=== PATIENT | female | born 1955 | race Caucasian/White ===

== ENCOUNTER 2017-08-03 22:21 | Emergency (ER) | payer SELFPAY ==
--- NOTE | 2017-08-04 00:17 | ER Document Report ---
ED Fall - General Chief Complaint: Fall Stated Complaint: FALL/ ALTERED MENTAL STATUS Time Seen by Provider: 08/03/17 22:43 Mode of Arrival: Stretcher Information source: Patient, Friend - HPI Patient complains to provider of: Fall Occurred: Just prior to arrival Where: Home Context: Slipped Associated symptoms: Lost consciousness Quality of pain: No pain Prehospital interventions: C-collar Notes: Patient is a 62-year-old female who is brought to the emergency room by EMS after falling down some stairs, patient's male mast maker at bedside states that they were drinking quite heavily this evening drinking fifth of rum combined, he heard patient tumbled down the stairs, when he found her laying on the floor near the front door she was unconscious, patient does not recall any of this occurring, and in fact denies drinking heavily this evening and falling, she denies any pain at time of my evaluation, she is moving all extremities without difficulty and multiple times trying to climb out of the stretcher - Related data Allergies/Adverse Reactions: No Known Allergies Allergy (Unverified 08/04/17 01:02) Past Medical History - General Information source: Patient, Friend - Social History Smoking Status: Unknown if Ever Smoked Frequency of alcohol use: Heavy Family History: Reviewed & Not Pertinent Review of Systems - Review of Systems Constitutional: No symptoms reported EENT: No symptoms reported Cardiovascular: No symptoms reported Respiratory: No symptoms reported Gastrointestinal: No symptoms reported Genitourinary: No symptoms reported Female Genitourinary: No symptoms reported Musculoskeletal: No symptoms reported Skin: No symptoms reported Hematologic/Lymphatic: No symptoms reported Neurological/Psychological: No symptoms reported -: Yes All other systems reviewed and negative Physical Exam - Vital signs Vitals: Resp 17 08/03/17 22:42 Interpretation: Normal - General General appearance: Alert, Other - EtOH on breath, appears intoxicated In distress: None - HEENT Head: Other - Swelling to posterior scalp Eyes: Normal Conjunctiva: Normal Extraocular movements intact: Yes Eyelashes: Normal Pupils: PERRL Neck: Other - C-collar in place - Respiratory Respiratory status: No respiratory distress Chest status: Nontender Breath sounds: Normal Chest palpation: Normal - Cardiovascular Rhythm: Regular Heart sounds: Normal auscultation Murmur: No - Abdominal Inspection: Normal Distension: No distension Bowel sounds: Normal Tenderness: Nontender Organomegaly: No organomegaly - Back Back: Normal, Nontender - Extremities General upper extremity: Normal inspection, Nontender, Normal color, Normal ROM , Normal temperature General lower extremity: Normal inspection, Nontender, Normal color, Normal ROM , Normal temperature, Normal weight bearing. No: Katharina's sign - Neurological Neuro grossly intact: Yes Cognition: Confused Orientation: Disoriented to events [place] Coma Scale Eye Opening: Spontaneous [place] Coma Scale Verbal: Confused Juan Jose Coma Scale Motor: Obeys Commands Swayzee Coma Scale Total: 14 Speech: Normal Motor strength normal: LUE, RUE, LLE, RLE Sensory: Normal - Psychological Associated symptoms: Normal affect, Normal mood - Skin Skin Temperature: Warm Skin Moisture: Dry Skin Color: Normal Course - Re-evaluation Re-evalutation: 08/04/17 00:48 I received a call from the radiologist reporting that patient had abnormal findings on her CT head including a subdural hematoma, subarachnoid blood and parenchymal contusions, a call was immediately placed to [facility] in [place], spoke with trauma surgeon Dr. aldrich, who accepts patient for transfer , transfer center states they have a EMS crew in the area and they will dispatch them over to pick patient up for transport - Vital Signs Vital signs: Temp Pulse Resp BP Pulse Ox 16 120/65 98 08/04/17 01:13 08/04/17 01:00 08/04/17 01:13 - Diagnostic Test Radiology reviewed: Image reviewed, Reports reviewed Critical Care Note - Critical Care Note Total time excluding time spent on procedures (mins): 30 Comments: Patient was slip and fall downstairs, positive EtOH on board, CT scan shows small subdural hematoma with subarachnoid and parenchymal hematomas, patient intoxicated in the emergency room, requiring frequent redirection to prevent further fall and injury, with transfer to trauma center at tertiary care center Discharge - Discharge Clinical Impression: Subdural hematoma, Trauma Traumatic subarachnoid hematoma with loss of consciousness Qualifiers: Encounter type: initial encounter Qualified Code(s): S06.6X9A - Traumatic subarachnoid hemorrhage with loss of consciousness of unspecified duration, initial encounter Alcohol intoxication Qualifiers: Complication of substance-induced condition: with unspecified complication Qualified Code(s): F10.929 - Alcohol use, unspecified with intoxication, unspecified Condition: Serious Disposition: [facility]
--- NOTE | 2017-08-04 00:50 | RADIOLOGY REPORT (SQ) ---
EXAM DESCRIPTION: CT HEAD WITHOUT COMPLETED DATE/TIME: 08/04/2017 12:11 am REASON FOR STUDY: injury COMPARISON: None. TECHNIQUE: Axial images acquired through the brain without intravenous contrast. Images reviewed wi th bone, brain and subdural windows. Images stored on PACS. All CT scanners at this facility use dose modulation, iterative reconstruction, and/or weight based d osing when appropriate to reduce radiation dose to as low as reasonably achievable (ALARA). [facility]: Dose Right [facility]: CareDose [facility]: Dose Right [facility]: Teradose 4D [facility]: [employer] RADIATION DOSE: Up-to-date CT equipment and radiation dose reduction techniques were employed. CTDIv ol: 64.6 mGy. DLP: 1292 mGy-cm. mGy. LIMITATIONS: Motion artifact. FINDINGS: VENTRICLES: Normal size and contour. CEREBRUM: Areas of increased densities are seen within the medial aspect of the bilateral frontal lob es and left parietal lobe, suggestive of small subarachnoid hemorrhages and brain contusions. Small area of intraparenchymal hemorrhage measuring 7 mm in the left parietal lobe (image 20). Otherwise, the white-fitch matter differentiation is preserved. No CT evidence of acute territorial infarct. No midline shift. CEREBELLUM: No hemorrhage. No alteration of density. No evidence for acute infarction. EXTRAAXIAL SPACES: Trace hyperdensities at the tentorium and the right frontal region measuring up to 3 mm in thickness, suggestive of small subdural hemorrhages. ORBITS AND GLOBE: Symmetrical contour of the globes. CALVARIUM: No depressed fracture. PARANASAL SINUSES: Mild mucosal thickening in the bilateral maxillary sinuses. SOFT TISSUES: Large scalp hematoma overlying the left parieto-occipital region. IMPRESSION: Small areas of acute subdural, subarachnoid and intraparenchymal hemorrhages. Short-ter m followup CT recommended to re-evaluate. Large scalp hematoma overlying the left parieto-occipital region. COMMENT: Pertinent findings on the imaging study reported as a CRITICAL RESULT to FROYLAN VIGIL DO at00:41 hours on 08/04/2017. Category of Critical Result: Acute intracranial hemorrhage. Quality ID # 436: Final reports with documentation of one or more dose reduction techniques (e.g., Au tomated exposure control, adjustment of the mA and/or kV according to patient size, use of iterative reconstruction technique) TECHNICAL DOCUMENTATION: JOB ID: [id number] OH-[id number] 2010 [employer]- All Rights Reserved
--- NOTE | 2017-08-04 01:04 | RADIOLOGY REPORT (SQ) ---
EXAM DESCRIPTION: CT CERVICAL SPINE WITHOUT COMPLETED DATE/TIME: 08/04/2017 12:11 am REASON FOR STUDY: injury , fall. COMPARISON: None. TECHNIQUE: Axial images acquired through the cervical spine without intravenous contrast. Images re viewed with lung, soft tissue and bone windows. Reconstructed coronal and sagittal MPR images review ed. Images stored on PACS. All CT scanners at this facility use dose modulation, iterative reconstruction, and/or weight based d osing when appropriate to reduce radiation dose to as low as reasonably achievable (ALARA). [facility]: Dose Right [facility]: CareDose [facility]: Dose Right [facility]: Teradose 4D [facility]: Smart [employer] RADIATION DOSE: Up-to-date CT equipment and radiation dose reduction techniques were employed. CTDIv ol: 10.2 mGy. DLP: 232 mGy-cm. mGy. LIMITATIONS: Motion artifact. Streak artifact from the patient's dental amalgam. FINDINGS: ALIGNMENT: Anatomic. MINERALIZATION: Normal. VERTEBRAL BODIES: No fractures or dislocation. DISCS: Degenerative disc disease at C5-C6. FACETS, LATERAL MASSES, POSTERIOR ELEMENTS: No fractures. No dislocation. HARDWARE: None in the spine. VISUALIZED RIBS: No fractures. LUNG APICES AND SOFT TISSUES: No acute findings. IMPRESSION: No CT evidence for acute fracture in the cervical spine. Degenerative disc disease at C 5-C6. TECHNICAL DOCUMENTATION: JOB ID: [id number] Quality ID # [id number]: Final reports with documentation of one or more dose reduction techniques (e.g., Au tomated exposure control, adjustment of the mA and/or kV according to patient size, use of iterative reconstruction technique) 2010 [email or web address]- All Rights Reserved
[2017-08-04 01:22] VITALS: BP 120/65
--- NOTE | 2017-08-04 01:33 | RADIOLOGY REPORT (SQ) ---
EXAM DESCRIPTION: ELBOW LEFT OVER 2 VIEWS COMPLETED DATE/TIME: 08/04/2017 12:36 am REASON FOR STUDY: fall COMPARISON: None. NUMBER OF VIEWS: Four views. TECHNIQUE: AP, lateral, and both oblique radiographic images acquired of the left elbow. LIMITATIONS: None. FINDINGS: MINERALIZATION: Normal. BONES: No acute fracture or dislocation. No worrisome bone lesions. JOINT: No effusion. SOFT TISSUES: No soft tissue swelling. Radiopaque catheter at the left antecubital fossa. IMPRESSION: No radiographic evidence of acute injury. TECHNICAL DOCUMENTATION: JOB ID: [id number] OH-[id number] 2010 [employer]- All Rights Reserved
== END 2017-08-04 01:20 | disposition short-term general hospital (02) ==
LOC: ER 22:21
DX: S06.6X9A Traumatic subarachnoid hemorrhage with loss of consciousness of unspecified duration, initial encounter (principal); R41.82 Altered mental status, unspecified; F10.929 Alcohol use, unspecified with intoxication, unspecified; W10.9XXA Fall (on) (from) unspecified stairs and steps, initial encounter; Y92.009 Unspecified place in unspecified non-institutional (private) residence as the place of occurrence of the external cause
CPT/HCPCS: 70450; 72125; 99291

== ENCOUNTER 2017-08-09 10:39 | Emergency (ER) | payer SELFPAY ==
--- NOTE | 2017-08-09 10:58 | ER Document Report ---
ED Medical Screen (RME) - General Chief Complaint: Headache Stated Complaint: FALL HEAD INJURY Time Seen by Provider: 08/09/17 10:50 Notes: 52-year-old female patient suffered a fall down flight of stairs on 08/03/2017 had a subdural hematoma and small subarachnoid hemorrhage. She was transferred divided and was discharged on 08/05/2017 since then she has complained of increasing headache and nauseousness. She suspects it may be due to the Dilaudid she was taking. I have greeted and performed a rapid initial assessment of this patient. A comprehensive ED assessment and evaluation of the patient, analysis of test results and completion of the medical decision making process will be conducted by additional ED providers. TRAVEL OUTSIDE OF THE [place] IN LAST 30 DAYS: No - Related Data Allergies/Adverse Reactions: No Known Allergies Allergy (Verified 08/09/17 10:45) Past Medical History Renal/ Medical History: Denies: Hx Peritoneal Dialysis Physical Exam - Vital signs Vitals: Temp Pulse Resp BP Pulse Ox 98.6 F 82 18 115/72 98 08/09/17 10:42 08/09/17 10:42 08/09/17 10:42 08/09/17 10:42 08/09/17 10:42 Course - Vital Signs Vital signs: Temp Pulse Resp BP Pulse Ox 98.6 F 82 18 115/72 98 08/09/17 10:42 08/09/17 10:42 08/09/17 10:42 08/09/17 10:42 08/09/17 10:42
[2017-08-09 11:38] LABS: ABSOLUTE BASOPHILS # (AUTO) 0.1 10^3/uL (0.0-0.2); ABSOLUTE LYMPHOCYTES (AUTO) 1.1 10^3/uL (0.5-4.7); ABSOLUTE MONOCYTES (AUTO) 0.7 10^3/uL (0.1-1.4); ABSOLUTE NEUT (AUTO) 7.5 10^3/uL (1.7-8.2); BASOPHILS % (AUTO) 0.7 % (0-2); EOSINOPHILS % (AUTO) 0.3 % (0-6); HEMATOCRIT 35.7 % (36.0-47.0); HGB HCT DIFFERENCE 3.3; LYMPHOCYTES % (AUTO) 11.8 % (13-45); MEAN CORPUSCULAR HEMOGLOBIN 33.2 pg (27.0-33.4); MEAN CORPUSCULAR HGB CONC 36.5 g/dL (32.0-36.0); MEAN CORPUSCULAR VOLUME 91 fl (80-97); MONOCYTES % (AUTO) 7.3 % (3-13); RED BLOOD COUNT 3.93 10^6/uL (3.72-5.28); RED CELL DISTRIBUTION WIDTH 13.3 % (11.5-14.0); SEGMENTED NEUTROPHILS % (AUTO) 79.9 % (42-78); WHITE BLOOD COUNT 9.4 10^3/uL (4.0-10.5)
--- NOTE | 2017-08-09 11:40 | RADIOLOGY REPORT (SQ) ---
EXAM DESCRIPTION: CT HEAD WITHOUT COMPLETED DATE/TIME: 08/09/2017 11:02 am REASON FOR STUDY: [place], nausea, recent subdural and subarachnoid bleed COMPARISON: 08/03/2017 TECHNIQUE: Axial images acquired through the brain without intravenous contrast. Images reviewed wi th bone, brain and subdural windows. Images stored on PACS. All CT scanners at this facility use dose modulation, iterative reconstruction, and/or weight based d osing when appropriate to reduce radiation dose to as low as reasonably achievable (ALARA). [facility]: Dose Right [facility]: CareDose [facility]: Dose Right [facility]: Teradose 4D [facility]: Smart [employer] RADIATION DOSE: Up-to-date CT equipment and radiation dose reduction techniques were employed. CTDIv ol: 64.6 mGy. DLP: 1163 mGy-cm. mGy. LIMITATIONS: None. FINDINGS: VENTRICLES: Normal size and contour. CEREBRUM: No masses. No hemorrhage. No midline shift. No evidence for acute infarction. Normal gra y/white matter differentiation. No areas of low density in the white matter. CEREBELLUM: No masses. No hemorrhage. No alteration of density. No evidence for acute infarction. EXTRAAXIAL SPACES: There is a small chronic left subdural fluid collection in the frontal area. Ther e is an increasing right subdural/subarachnoid fluid collection that extends from the frontal to the parietal area. Fresh blood is present. This extends up to the vertex. ORBITS AND GLOBE: No intra- or extraconal masses. Normal contour of globe without masses. CALVARIUM: No fracture. PARANASAL SINUSES: No fluid or mucosal thickening. SOFT TISSUES: No mass or hematoma. OTHER: No other significant finding. IMPRESSION: Acute/subacute subdural and subarachnoid hemorrhage on the right as described. This rep resents a significant change from the earlier study. EVIDENCE OF ACUTE STROKE: NO. COMMENT: Findings reported to the emergency room physician at 1134 hours on this date. Quality ID # 436: Final reports with documentation of one or more dose reduction techniques (e.g., Au tomated exposure control, adjustment of the mA and/or kV according to patient size, use of iterative reconstruction technique) TECHNICAL DOCUMENTATION: JOB ID: [id number]- All Rights Reserved
--- NOTE | 2017-08-09 11:43 | ER Document Report ---
ED General - General Chief Complaint: Headache Stated Complaint: FALL HEAD INJURY Time Seen by Provider: 08/09/17 10:50 Mode of Arrival: Ambulatory Information source: Patient Notes: 62 yr old female who was diagnosed with subdural and subarachnoid bleed on the sent to [facility] discharged on the , noted to have worsening symptoms on the . Pt notes she was taking motrin becuase the tylenol was not helping. TRAVEL OUTSIDE OF THE [place] IN LAST 30 DAYS: No - Related Data Allergies/Adverse Reactions: No Known Allergies Allergy (Verified 08/09/17 10:45) Home Medications: Current Home Medications Alprazolam [Xanax] 1 tab PO DAILY 08/09/17 [History] Past Medical History - Social History Smoking Status: Current Every Day Smoker Chew tobacco use (# tins/day): No Frequency of alcohol use: Occasional Drug Abuse: None Family History: Reviewed & Not Pertinent Renal/ Medical History: Denies: Hx Peritoneal Dialysis Past Surgical History: Reports: Hx Section - x 2, Hx Tonsillectomy Physical Exam - Vital signs Vitals: Temp Pulse Resp BP Pulse Ox 98.6 F 82 18 115/72 98 08/09/17 10:42 08/09/17 10:42 08/09/17 10:42 08/09/17 10:42 08/09/17 10:42 Course - Re-evaluation Re-evalutation: 08/09/17 11:41 I contacted [facility] paged they state they have no beds, explained my concerns for new subdural subarrachnoid bleed 08/09/17 12:23 dr Silva accepts patients , request BP 140/80 . currently bp is stable. - Vital Signs Vital signs: Temp Pulse Resp BP Pulse Ox 98.6 F 82 18 115/72 98 08/09/17 10:42 08/09/17 10:42 08/09/17 10:42 08/09/17 10:42 08/09/17 10:42 - Laboratory Result Diagrams: 08/09/17 11:30 08/09/17 11:30 Laboratory results interpreted by me: 08/09/17 08/09/17 11:30 11:30 Hct 35.7 L MCHC 36.5 H Seg Neutrophils % 79.9 H Lymphocytes % 11.8 L Sodium 136.6 L Creatinine 0.46 L Glucose 113 H Direct Bilirubin 0.6 H - Diagnostic Test Radiology reviewed: Image reviewed, Reports reviewed - subdural subarrachnoid new bleed noted Critical Care Note - Critical Care Note Total time excluding time spent on procedures (mins): 43 Comments: 43 minutes of critical care time spent in direct contact evaluating and reevaluating the patient, treating symptoms, reviewing labs and studies and speaking with family and consultants excluding any procedures Discharge - Discharge Clinical Impression: Subdural hematoma, Subarachnoid bleed Headache Qualifiers: Headache type: unspecified Headache chronicity pattern: acute headache Intractability: not intractable Qualified Code(s): R51 - Headache Condition: Stable Disposition: [facility]
[2017-08-09] MEDS ORDERED: ONDANSETRON HCL INJ/PF 4 MG/2 ML SDV IV ONE ×2 (11:53→14:39)
[2017-08-09] MEDS ORDERED: MORPHINE SULFATE 10 MG/ML INJ IV ONE ×2 (11:53→14:39)
[2017-08-09 11:58] LABS: ALANINE AMINOTRANSFERASE 24 U/L (9-52); ALBUMIN 4.3 g/dL (3.5-5.0); ALKALINE PHOSPHATASE 107 U/L (38-126); ANION GAP 13 (5-19); ASPARTATE AMINO TRANSFERASE 30 U/L (14-36); BILIRUBIN,DIRECT 0.6 mg/dL (0.0-0.4); BILIRUBIN,TOTAL 1.1 mg/dL (0.2-1.3); BLOOD UREA NITROGEN 14 mg/dL (7-20); CALCIUM 10.1 mg/dL (8.4-10.2); CARBON DIOXIDE 25 mmol/L (22-30); CHLORIDE 99 mmol/L (98-107); CREATININE RESULT 0.46 mg/dL (0.52-1.25); GLUCOSE 113 mg/dL (75-110); POTASSIUM 4.3 mmol/L (3.6-5.0); SODIUM 136.6 mmol/L (137-145); TOTAL PROTEIN 7.6 g/dL (6.3-8.2)
[2017-08-09 14:26] VITALS: BP 113/81
== END 2017-08-09 15:08 | disposition short-term general hospital (02) ==
LOC: ER 10:39
DX: S06.5X9A Traumatic subdural hemorrhage with loss of consciousness of unspecified duration, initial encounter (principal); S06.6X9A Traumatic subarachnoid hemorrhage with loss of consciousness of unspecified duration, initial encounter; R51 Headache; W10.9XXA Fall (on) (from) unspecified stairs and steps, initial encounter; F17.200 Nicotine dependence, unspecified, uncomplicated
CPT/HCPCS: 96376; 99291; 96374; 96375; 36415; 85025; 80053; 70450; J2270; J2405

== ENCOUNTER 2018-05-03 19:42 | Emergency (ER) | payer SELFPAY ==
--- NOTE | 2018-05-03 20:28 | ER Document Report ---
ED General - General Stated Complaint: PSYCH EVAL Time Seen by Provider: 05/03/18 19:56 Cannot obtain history due to: Intoxicated, Altered mental status Notes: The patient is a 62-year-old female who presents on involuntary commitment paperwork after apparently threatening suicide to family members. The patient is visibly intoxicated. She states that she told her family she wanted to kill herself because she is lonely but denies actual attend intentions of wanting to harm herself. Her history is otherwise limited as the patient is intoxicated and also appears to be under psychiatric distress. IVC documentation reports that the patient is apparently not been caring for herself. It also reports that she has not been taking her medications. She had a mobile crisis assessment and the mobile grocery worker is the individual who took the IVC out on the patient. TRAVEL OUTSIDE OF THE [place] IN LAST 30 DAYS: No - Related Data Allergies/Adverse Reactions: No Known Allergies Allergy (Verified 08/09/17 10:45) Past Medical History - General Information source: Patient - Social History Smoking Status: Current Every Day Smoker Frequency of alcohol use: Occasional Drug Abuse: None Lives with: Alone Family History: Reviewed & Not Pertinent Renal/ Medical History: Denies: Hx Peritoneal Dialysis Past Surgical History: Reports: Hx Section - x 2, Hx Tonsillectomy Review of Systems - Review of Systems Notes: Constitutional: Negative for fever. HENT: Negative for sore throat. Eyes: Negative for visual changes. Cardiovascular: Negative for chest pain. Respiratory: Negative for shortness of breath. Gastrointestinal: Negative for abdominal pain, vomiting or diarrhea. Genitourinary: Negative for dysuria. Musculoskeletal: Negative for back pain. Skin: Negative for rash. Neurological: Negative for headaches, weakness or numbness. 10 point ROS negative except as marked above and in HPI. Physical Exam - Vital signs Notes: PHYSICAL EXAMINATION: GENERAL: Somewhat disheveled, intoxicated HEAD: Atraumatic, normocephalic. EYES: Pupils equal round and reactive to light, extraocular movements intact, sclera anicteric, conjunctiva are normal. ENT: nares patent, oropharynx clear without exudates. Moist mucous membranes. NECK: Normal range of motion, supple without lymphadenopathy LUNGS: Breath sounds clear to auscultation bilaterally and equal. No wheezes rales or rhonchi. HEART: Regular rate and rhythm without murmurs ABDOMEN: Soft, nontender, normoactive bowel sounds. No guarding, no rebound. No masses appreciated. EXTREMITIES: Normal range of motion, no pitting or edema. No cyanosis. NEUROLOGICAL: No focal neurological deficits. Moves all extremities spontaneously and on command. PSYCH: Labile mood and affect. Anxious, tearful, intermittently agitated SKIN: Warm, Dry, normal turgor, no rashes or lesions noted. Course - Re-evaluation Re-evalutation: 05/03/18 20:27 Patient is presenting with reported suicidal ideation, poor maintenance of hygiene, agitation, and conflict with family on IVC. She allegedly told her family members that she wanted to kill herself and apparently wrote a suicide note. She arrives in police custody. Patient has an unusual affect speaking normally one moment and then tearful and crying as well as screaming the next. She has no prior psychiatric hospitalizations here at this hospital. She is currently denying any suicidal or homicidal intention. However based on IVC assessment by mobile [employer] crisis I do believe that she should remain in the emergency department for evaluation and disposition by psychiatry. Her medical screening examination is unremarkable. Standard screening laboratories will be sent. She is otherwise cleared for evaluation and disposition by psychiatry in the morning. - Laboratory Result Diagrams: 05/03/18 20:20 05/03/18 20:20 Laboratory results interpreted by me: 05/03/18 05/03/18 05/03/18 20:20 20:20 20:20 Hgb 16.0 H Sodium 153.6 H Chloride 111 H BUN 5 L Urine Blood SMALL H Salicylates < 1.0 L Acetaminophen < 10 L Discharge - Discharge Clinical Impression: Threatening suicide Alcohol intoxication Qualifiers: Complication of substance-induced condition: uncomplicated Qualified Code(s): F10.920 - Alcohol use, unspecified with intoxication, uncomplicated Condition: Fair
[2018-05-03 20:34] LABS: ABSOLUTE BASOPHILS # (AUTO) 0.1 10^3/uL (0.0-0.2); ABSOLUTE EOSINOPHILS # (AUTO) 0.1 10^3/uL (0.0-0.6); ABSOLUTE LYMPHOCYTES (AUTO) 3.4 10^3/uL (0.5-4.7); ABSOLUTE MONOCYTES (AUTO) 0.3 10^3/uL (0.1-1.4); ABSOLUTE NEUT (AUTO) 4.2 10^3/uL (1.7-8.2); BASOPHILS % (AUTO) 1.2 % (0-2); EOSINOPHILS % (AUTO) 1.3 % (0-6); LYMPHOCYTES % (AUTO) 42.1 % (13-45); MEAN CORPUSCULAR HGB CONC 34.9 g/dL (32.0-36.0); MEAN CORPUSCULAR VOLUME 92 fl (80-97); MONOCYTES % (AUTO) 4.2 % (3-13); PLATELET COUNT 290 10^3/uL (150-450); RED BLOOD COUNT 5.01 10^6/uL (3.72-5.28); RED CELL DISTRIBUTION WIDTH 13.8 % (11.5-14.0); SEGMENTED NEUTROPHILS % (AUTO) 51.2 % (42-78); TOTAL CELLS COUNTED % (AUTO) 100 %; WHITE BLOOD COUNT 8.1 10^3/uL (4.0-10.5)
[2018-05-03 20:52] LABS: ALANINE AMINOTRANSFERASE 21 U/L (9-52); ALBUMIN 4.8 g/dL (3.5-5.0); ALCOHOL 229 mg/dL (NONE DETECTED); ALKALINE PHOSPHATASE 80 U/L (38-126); ANION GAP 16 (5-19); ASPARTATE AMINO TRANSFERASE 22 U/L (14-36); BILIRUBIN,DIRECT 0.3 mg/dL (0.0-0.4); BILIRUBIN,TOTAL 0.4 mg/dL (0.2-1.3); BLOOD UREA NITROGEN 5 mg/dL (7-20); CALCIUM 9.9 mg/dL (8.4-10.2); CARBON DIOXIDE 27 mmol/L (22-30); CHLORIDE 111 mmol/L (98-107); GLUCOSE 79 mg/dL (75-110); SODIUM 153.6 mmol/L (137-145); TOTAL PROTEIN 7.9 g/dL (6.3-8.2)
[2018-05-03 20:54] LABS: ACETAMINOPHEN < 10 ug/mL (10-30); SALICYLATE < 1.0 mg/dL (2.0-20.0)
[2018-05-03 21:03] LABS: APPEARANCE,URINE CLEAR; BILIRUBIN,URINE NEGATIVE (NEGATIVE); COLOR,URINE STRAW; GLUCOSE, URINE NEGATIVE (NEGATIVE); KETONES,URINE NEGATIVE (NEGATIVE); LEUKOCYTE ESTERASE,URINE NEGATIVE (NEGATIVE); NITRITE,URINE NEGATIVE (NEGATIVE); PROTEIN,URINE NEGATIVE (NEGATIVE); URINE SPECIFIC GRAVITY 1.003; UROBILINOGEN,URINE NEGATIVE mg/dL (<2.0)
[2018-05-03] MEDS ORDERED: NICOTINE 21 MG/24 HR PATCH.TD24 TD ONE (21:03)
[2018-05-03 21:15] LABS: URINE AMPHETAMINES SCREEN NEGATIVE; URINE BARBITURATES SCREEN NEGATIVE; URINE BENZODIAZEPINES SCREEN UNCONFIRMED POSITIVE; URINE COCAINE SCREEN NEGATIVE; URINE MARIJUANA (THC) SCREEN NEGATIVE; URINE METHADONE SCREEN NEGATIVE; URINE PHENCYCLIDINE SCREEN NEGATIVE
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
--- NOTE | 2018-05-04 10:53 | RADIOLOGY REPORT (SQ) ---
EXAM DESCRIPTION: CT HEAD WITHOUT COMPLETED DATE/TIME: 05/04/2018 10:28 am REASON FOR STUDY: Altered mental status, Hx SDH COMPARISON: CT brain 08/03/2017, 08/09/2017 TECHNIQUE: Axial images acquired through the brain without intravenous contrast. Images reviewed wi th bone, brain and subdural windows. Additional sagittal and coronal reconstructions were generated. Images stored on PACS. All CT scanners at this facility use dose modulation, iterative reconstruction, and/or weight based d osing when appropriate to reduce radiation dose to as low as reasonably achievable (ALARA). [facility]: Dose Right [facility]: CareDose [facility]: Dose Right [facility]: Teradose 4D [facility]: Smart [employer] RADIATION DOSE: CT Rad equipment meets quality standard of care and radiation dose reduction techniq ues were employed. CTDIvol: 53.2 mGy. DLP: 1044 mGy-cm. mGy. LIMITATIONS: None. FINDINGS: VENTRICLES: Normal size and contour. CEREBRUM: No masses. No hemorrhage. No midline shift. No evidence for acute infarction. Normal gra y/white matter differentiation. No areas of low density in the white matter. CEREBELLUM: No masses. No hemorrhage. No alteration of density. No evidence for acute infarction. EXTRAAXIAL SPACES: No fluid collections. No masses. ORBITS AND GLOBE: No intra- or extraconal masses. Normal contour of globe without masses. CALVARIUM: No fracture. PARANASAL SINUSES: No fluid or mucosal thickening. SOFT TISSUES: No mass or hematoma. OTHER: No other significant finding. IMPRESSION: NORMAL BRAIN CT WITHOUT CONTRAST. EVIDENCE OF ACUTE STROKE: NO. COMMENT: Quality ID # [id number]: Final reports with documentation of one or more dose reduction techniques (e.g., Automated exposure control, adjustment of the mA and/or kV according to patient size, use of iterative reconstruction technique) TECHNICAL DOCUMENTATION: JOB ID: [id number] [employer]- All Rights Reserved Reading location - IP/workstation name: [email or web address]
[2018-05-04 11:23] LABS: ANION GAP 10 (5-19); BLOOD UREA NITROGEN 8 mg/dL (7-20); CARBON DIOXIDE 28 mmol/L (22-30); CHLORIDE 112 mmol/L (98-107); GLUCOSE 85 mg/dL (75-110); POTASSIUM 4.2 mmol/L (3.6-5.0)
[2018-05-04 13:26] VITALS: BP 106/88
== END 2018-05-04 13:26 | disposition home or self-care (01) ==
LOC: ER 19:42
DX: Z04.6 Encounter for general psychiatric examination, requested by authority (principal); R45.851 Suicidal ideations; F10.120 Alcohol abuse with intoxication, uncomplicated; Y90.7 Blood alcohol level of 200-239 mg/100 ml; F41.9 Anxiety disorder, unspecified; T42.4X6A Underdosing of benzodiazepines, initial encounter; Z91.128 Patient's intentional underdosing of medication regimen for other reason; Z91.14 Patient's other noncompliance with medication regimen; F17.200 Nicotine dependence, unspecified, uncomplicated; Z87.820 Personal history of traumatic brain injury
CPT/HCPCS: 36415; 70450; 80048; 80053; 80307; 81001; 85025; 99285